=== PATIENT | female | born 1995 | race Two or more races ===

== ENCOUNTER 2018-02-22 16:27 | Emergency (ER) | payer OTHER ==
[~2018-02-22] VITALS: Ht 157.5 cm; Wt 90.7 kg
[2018-02-22 20:17] LABS: BASOPHIL % 0.5 % (0-2); PLATELET COUNT 386 x10^3mcL (130-400); RED CELL DISTRIBUTION WIDTH 13.9 % (11.5-14.5)
[2018-02-22 20:30] LABS: CALCIUM 8.9 mg/dL (8.5-10.1); CARBON DIOXIDE 30.4 mmol/L (21-32); CHLORIDE SERUM 103 mmol/L (98-107); CREATININE SERUM 0.8 mg/dL (0.6-1.0); GFR1 > 60 mL/min; GLUCOSE SERUM 87 mg/dL (74-106); POTASSIUM SERUM 4.5 mmol/L (3.5-5.1); SODIUM SERUM 140 mmol/L (136-145)
[2018-02-22 20:36] LABS: ALBUMIN 3.7 g/dL (3.4-5.0); ALKALINE PHOSPHATASE 98 U/L (46-116); ALT/SGPT 22 U/L (14-59); AST/SGOT 12 U/L (15-37); BILIRUBIN TOTAL 0.4 mg/dL (0.20-1.00)
[2018-02-22 20:40] VITALS: BP 128/84
== END 2018-02-22 20:40 | disposition home or self-care (01) ==
LOC: ED 16:27
PROVIDERS: Specialist
DX: K64.4 Residual hemorrhoidal skin tags (principal); K62.5 Hemorrhage of anus and rectum
CPT/HCPCS: 36415

== ENCOUNTER 2018-08-08 02:02 | Emergency (ER) | payer OTHER | END 2018-08-08 03:18 | disposition home or self-care (01) | LOC: ED 02:02 ==